=== PATIENT | female | born 1970 | race Caucasian/White ===

== ENCOUNTER 2017-03-04 14:43 | Emergency (ER) | payer OTHER ==
[~2017-03-04] VITALS: Ht 165.1 cm; Wt 86.2 kg
[~2017-03-04 14:43] MED LIST: ADULT LOW DOSE81 MG PO; ALBUTEROL INH INH; ASPIR 8181 MG PO; AZITHROMYCIN 2250 MG PO; BACTRIM DS TAB1 EACH PO; BLACK COHOSH200 MG; BUDESONIDE; CELECOXIB100 MG PO; COLACE100 MG PO; COMBIVENT INH; CYMBALTA60 MG PO; DIPHENHIST50 MG PO; EPIPEN 2-P0.3 MG/0.3 IM; FIBERCON625 M1 PO; FORMOTEROL; GABAPENTIN 100100 MG PO; GLUCOPHAGE1000 MG PO; HYDROCODONE-AP1 EAC6 PO; LIDOCAINE SWISH&SPIT; LIPITOR40 MG PO; LORTAB 5 MG/5001 TAB PO; LYRICA 50 MG50 MG PO; LYRICA 75 MG CA75 MG PO; Lithium; MEDROLDOSEPACK PO; MIRALAX17 GM PO; Magnesium PO; NICOTINE1 EACH TD; NITROSTAT0.3 MG SL; NORCO 10-325 T1 EACH PO; NORCO 5-325 TA1 EACH PO; ONE-TABLET-DAI1 EAC1 PO; OXYBUTYNIN 5 MG5 M2 PO; OXYCODONE HCL 55 MG PO; OXYCONTIN10 M1 PO; PENICILLIN VK500 M1 PO; PERCOCET 10-651 EACH PO; PERCOCET 5-3251 EACH PO; PERCOCET PO; PHENERGAN 25 MG25 M1 PO; PLAVIX 75 MG TA75 MG PO; PREDNISONE 10 M10 M1 PO; PREDNISONE 10 M10 MG PO; PREDNISONE 20 M20 M1 PO; PREDNISONE 20 M20 MG PO; PREDNISONE50 MG PO; PRINIVIL5 MG PO; PRISTIQ100 MG PO; PROAIR HFA8.5 GM IH; SYMBICORT160 MCG/4. INH; TOPAMAX 100 MG100 MG PO; TOPAMAX100 MG PO; TOPAMAX50 MG PO; TOPROL XL 25 MG25 MG PO; TORADOL 10 MG T10 MG PO; TRAMADOL 50 MG50 MG PO; TRAZODONE 150150 M1 PO; TRAZODONE 150150 MG PO; VICODIN 5-5001 EACH PO; VITAMIN D35000 UNI1 PO; VITAMIN D400 UNI1 PO; XANAX 0.25 MG0.25 MG PO; ZEGERID; ZEGERID 40 MG1 EACH PO; ZPAK PO; [UNRECOGNIZED DRUG - OTHER] SWISH&SPIT
[2017-03-04] MEDS ORDERED: MAGOX 400400 MG PO (14:49)
[2017-03-04] MEDS ORDERED: KEFLEX500 M1 PO (14:50)
[2017-03-04] MEDS ORDERED: CYMBALTA30 MG PO (14:50)
[2017-03-04 15:52] LABS: INFLUENZA A ANTIGEN None Detected (None Detect); INFLUENZA B ANTIGEN None Detected (None Detect)
[2017-03-04 16:08] LABS: ABSOLUTE EOSINOPHILS 0.7 thou/uL (0.0-0.7); ABSOLUTE LYMPHOCYTES 3.2 thou/uL (0.8-5.3); ABSOLUTE MONOCYTES 0.6 thou/uL (0.0-1.2); ABSOLUTE NEUTROPHILS 5.1 thou/uL (1.6-8.1); BASOPHILS 0.5 %; EOSINOPHILS 7.4 %; HEMATOCRIT 40.3 % (37.0-47.0); HEMOGLOBIN 13.6 gm/dL (12.0-15.0); LYMPHOCYTES 33.3 %; MCH 31.5 pg (26.0-34.0); MCHC 33.7 g/dL (28.0-37.0); MCV 93.5 fL (80.0-100.0); MPV 7.8 fl. (7.2-11.1); NUCLEATED RBCS 0 /100WBC; PLATELET COUNT* 227 thou/uL (150-400); POLYS 52.8 %; RBC 4.31 mil/uL (4.20-5.00); WBC 9.6 thou/uL (4.0-11.0)
[2017-03-04 16:14] LABS: ANION GAP 11 mmol/L (7-16); BUN 16 mg/dL (7-18); CHLORIDE 108 mmol/L (98-107); CO2 22 mmol/L (21-32); CREATININE 0.7 mg/dL (0.6-1.3); GLUCOSE 87 mg/dL (70-99); POTASSIUM 3.9 mmol/L (3.5-5.1); SODIUM 141 mmol/L (136-145)
[2017-03-04 16:21] LABS: ALBUMIN 3.7 g/dL (3.4-5.0); ALKALINE PHOSPHATASE 79 U/L (46-116); SGOT 17 U/L (15-37); SGPT 29 U/L (30-65); TOTAL BILIRUBIN 0.1 mg/dL (<0.1-1.0); TOTAL PROTEIN 6.9 g/dL (6.4-8.2); TROPONIN-I LEVEL <0.06 ng/mL (<0.06)
[2017-03-04] MEDS ORDERED: AZITHROMYCIN500 MG PO (16:39)
[2017-03-04 16:48] VITALS: BP 125/66
--- NOTE | 2017-03-05 11:18 | EKG ---
[place] [address] ELECTROCARDIOGRAM REPORT Name: MAXWELL HERNANDEZ Room: [facility]#: [id number] Admission: 03/04/17 Attend Phys: Discharge: 03/04/17 Date of : 68 Report #: [id number] THIS REPORT FOR: //name// [facility] ED Test Date: 2017-03-04 Test Time: 15:59:08 Pat Name: MAXWELL HERNANDEZ Department: Room: Gender: F Brim Curler: Dora MUSTAFA : 1970 Requested By: Josy Moncada Order Number: [id number] MD: Noe Tiwari Measurements Intervals [place] Rate: 86 P: 51 PA: 139 QRS: 28 QRSD: 88 T: 28 QT: 363 QTc: 434 Interpretive Statements Sinus rhythm Low voltage, precordial leads RSR' in V1 or V2, right VCD or RVH Compared to ECG 06/30/2015 08:49:52 RSR' in V1 or V2 now present Electronically Signed On 03-05-2017 11:18:39 TIRE MOLD ENGRAVER by Noe Tiwari [email or web address] <ELECTRONICALLY SIGNED> By: Noe Tiwari MD, FAC 03/05/17 1118 1559 1559 Noe Tiwari MD, [facility] /EPI
== END 2017-03-04 16:49 | disposition home or self-care (01) ==
LOC: M.ERS 14:43
PROVIDERS: Family Medicine; Nurse Practitioner Family
DX: B34.9 Viral infection, unspecified (principal); R05 Cough; J02.9 Acute pharyngitis, unspecified; I25.2 Old myocardial infarction; I25.10 Atherosclerotic heart disease of native coronary artery without angina pectoris; E11.9 Type 2 diabetes mellitus without complications; K21.9 Gastro-esophageal reflux disease without esophagitis; F41.9 Anxiety disorder, unspecified; G43.909 Migraine, unspecified, not intractable, without status migrainosus; F17.210 Nicotine dependence, cigarettes, uncomplicated; Z90.711 Acquired absence of uterus with remaining cervical stump; Z98.890 Other specified postprocedural states; Z95.5 Presence of coronary angioplasty implant and graft; Z87.11 Personal history of peptic ulcer disease

== ENCOUNTER 2020-08-29 14:24 | Emergency (ER) | payer OTHER ==
[~2020-08-29] VITALS: Ht 162.6 cm; Wt 47.6 kg
[~2020-08-29 14:24] MED LIST changes: +AZITHROMYCIN500 MG PO; +CYMBALTA30 MG PO; +KEFLEX500 M1 PO; +MAGOX 400400 MG PO
[2020-08-29] MEDS ORDERED: NEURONTIN 400M400 M2 PO (14:52)
[2020-08-29 15:02] VITALS: BP 122/68
== END 2020-08-29 15:02 | disposition home or self-care (01) ==
LOC: M.ERS 14:24
DX: M79.671 Pain in right foot (principal); I25.10 Atherosclerotic heart disease of native coronary artery without angina pectoris; E11.9 Type 2 diabetes mellitus without complications; K21.9 Gastro-esophageal reflux disease without esophagitis; K58.9 Irritable bowel syndrome, unspecified; G43.909 Migraine, unspecified, not intractable, without status migrainosus; F17.210 Nicotine dependence, cigarettes, uncomplicated; Z90.49 Acquired absence of other specified parts of digestive tract

== ENCOUNTER 2021-04-24 20:00 | Inpatient (IN) | payer OTHER ==
[~2021-04-24] VITALS: Ht 157.5 cm; Wt 52.2 kg
--- NOTE | ~2021-04-24 | EKG ---
[place] [address] ELECTROCARDIOGRAM REPORT Name: MAXWELL HERNANDEZ Room: [facility]#: [id number] Admission: Attend Phys: Discharge: Date of : 68 Date of Service: 04/24/212004 Report #: [id number] THIS REPORT FOR: //name// [facility] ED Test Date: 2021-04-24 Test Time: 20:05:30 Pat Name: MAXWELL HERNANDEZ Department: Room: Gender: F Performance Improvement Specialist: : 1970 Requested By: Charly Combs Order Number: [id number] MD: Measurements Intervals [place] Rate: 84 P: 84 [place]: 137 QRS: 61 QRSD: 88 T: 58 QT: 361 QTc: 427 Interpretive Statements Sinus rhythm Compared to ECG 03/04/2017 15:59:08 Right ventricular hypertrophy no longer present [email or web address] By: 04 04 [facility], /EPI
[~2021-04-24 20:00] MED LIST changes: +NEURONTIN 400M400 M2 PO
[2021-04-24 20:03] VITALS: BP 133/53
[2021-04-24] MEDS ORDERED: OZOBAX5 MG/5 ML PO (20:17)
[2021-04-24 20:26] LABS: HEMATOCRIT 32.6 % (37.0-47.0); MCH 30.9 pg (26.0-34.0); MCHC 33.9 g/dL (28.0-37.0); MCV 91.3 fL (80.0-100.0); MPV 6.9 fl. (7.2-11.1); NUCLEATED RBCS 0 /100WBC; PLATELET COUNT* 195 thou/uL (150-400); RBC 3.57 mil/uL (4.20-5.00); WBC 8.5 thou/uL (4.0-11.0)
[2021-04-24 20:38] LABS: CALCIUM 7.6 mg/dL (8.5-10.1); CREATININE 0.6 mg/dL (0.6-1.3); POTASSIUM 3.5 mmol/L (3.5-5.1)
[2021-04-24 20:48] LABS: ALBUMIN 3.3 g/dL (3.4-5.0); MAGNESIUM 1.7 mg/dL (1.8-2.4); TOTAL BILIRUBIN 0.3 mg/dL (<0.1-1.0); TOTAL PROTEIN 5.4 g/dL (6.4-8.2)
[2021-04-24 21:17] LABS: ABSOLUTE EOSINOPHILS 1.9 thou/uL (0.0-0.7); ABSOLUTE LYMPHOCYTES 1.9 thou/uL (0.8-5.3); ABSOLUTE MONOCYTES 0.4 thou/uL (0.0-1.2); ABSOLUTE NEUTROPHILS 4.3 thou/uL (1.6-8.1)
[2021-04-24 21:50] VITALS: BP 119/60
== END 2021-04-25 | disposition home or self-care (01) | DRG 313 ==
LOC: M.ERS 20:00 → M.TBA-ER 21:38
PROVIDERS: Emergency Medicine Emergency Medical Services; ADMIT Internal Medicine; ATTEND Internal Medicine
DX: R07.89 Other chest pain (principal); Z20.822 Contact with and (suspected) exposure to COVID-19; Z79.899 Other long term (current) drug therapy; I25.10 Atherosclerotic heart disease of native coronary artery without angina pectoris; I25.2 Old myocardial infarction; E11.9 Type 2 diabetes mellitus without complications; K57.30 Diverticulosis of large intestine without perforation or abscess without bleeding; K21.9 Gastro-esophageal reflux disease without esophagitis; G43.909 Migraine, unspecified, not intractable, without status migrainosus